=== PATIENT | female | born 1960 | race Caucasian/White ===

== ENCOUNTER 2017-06-16 14:13 | Emergency (ER) | payer OTHER ==
[~2017-06-16] VITALS: Ht 180.3 cm; Wt 59.4 kg
[2017-06-16 14:24] VITALS: TEMP 37; Ht 180.3 cm; Wt 59.4 kg
--- NOTE | 2017-06-16 15:13 | DIAGNOSTIC IMAGING REPORT ---
LEFT ANKLE 3 VIEWS HISTORY: Left ankle pain. COMPARISON: None. FINDINGS: Displaced fractures involving the medial and lateral malleolus with lateral subluxation of the talus in relation to the tibia. This demonstrates up to 8 mm of lateral displacement. Diffuse soft tissue swelling. No radiopaque foreign bodies. IMPRESSION: Displaced bimalleolar left ankle fracture as described above. Electronically signed by: Walter Duval M.D. 06/16/2017 3:11 PM Dictated Date/Time: 06/16/2017 3:10 PM
[2017-06-16] MEDS ORDERED: CHOL1TAB42 PO (15:20)
[2017-06-16] MEDS ORDERED: CIME-56 PO (15:20)
[2017-06-16] MEDS ORDERED: MILK140C PO (15:20)
[2017-06-16] MEDS ORDERED: OMEG1CAP71 PO (15:20)
[2017-06-16] MEDS ORDERED: COEN100C11 PO (15:20)
[2017-06-16] MEDS ORDERED: MELA1TAB22 PO (15:20)
[2017-06-16] MEDS ORDERED: MULT-513 PO (15:20)
[2017-06-16] MEDS ORDERED: PANC6000 PO (15:20)
[2017-06-16] MEDS ORDERED: TURM1CAP2 PO (15:20)
[2017-06-16] MEDS ORDERED: OXYCODONE/ACETAMINOPHEN 5-325 TAB PO STA (15:26)
[2017-06-16 15:35] VITALS: BP 129/77; PULSE 64; O2SAT 97
--- NOTE | 2017-06-16 15:47 | EMERGENCY ROOM VISIT NOTE ---
History First contact with patient: 14:36 Chief Complaint: ANKLE PAIN Stated Complaint: LT ANKLE PAIN FRACTURE History of Present Illness The patient is a 57 year old female who presents to the Emergency Room via private vehicle with complaints of "left ankle pain, fracture". The patient states that last evening she slipped and fell on the [place] around midnight, and injured her left ankle. She was seen at [facility], and was placed in a posterior splint and was recommended to come here for further evaluation. She notes pain and left ankle that she rates as a 3/10. There is no numbness or tingling. She denies other injury. Review of Systems A complete 6-point Review of Systems was discussed with the patient, with pertinent positives and negatives listed in the History of Present Illness. All remaining Review of Systems questions can be considered negative unless otherwise specified. Past Medical/Surgical History No pertinent Family History No pertinent. Social History Smoking Status: Former Smoker Pt. lives in [place] Current/Historical Medications Scheduled Cholecalciferol (Vitamin D), 5,000 UNITS PO DAILY Cimetidine (Tagamet), 400 MG PO BID Coenzyme Q10 (Ubidecarenone) (Coq-10), 100 MG PO DAILY Melatonin-Pyridoxine (Melatonin), 20 MG PO HS Milk Thistle (Silybum Marianum (Milk Thistle), 1 TAB PO DAILY Multivitamins/Minerals (Mvi With Minerals), 1 TAB PO DAILY Deane 3 Fatty Acids-Deane 6 Fa (Deane 3-6-9 Complex), 1 CAP PO DAILY Pancrelipase (Lipase-Protease- (Creon), 1-2 CAP PO TIDM Turmeric (Curcuma Longa) (Turmeric), 1 TAB PO DAILY Scheduled PRN Oxycodone/Acetaminophen 5MG/325MG (Percocet 5MG/325MG), 1 TAB PO Q4H PRN for Pain Physical Exam Vital Signs Date Time Temp Pulse Resp B/P (MAP) Pulse Ox O2 Delivery O2 Flow Rate FiO2 06/16/17 15:35 64 16 129/77 97 Room Air 06/16/17 14:24 37.0 77 16 129/75 97 Room Air Physical Exam VITAL SIGNS - Vital signs and nursing notes were reviewed. Stable. GENERAL - 57-year-old female appearing her stated age who is in no acute distress. Communicates well with provider and answers questions appropriately. SKIN - L ankle edema. HEAD - NC/AT. EXTREMITIES - No clubbing or peripheral cyanosis. No pretibial edema present. L ankle tenderness diffusely about the left ankle joint. +5/5 strength noted in UE /LE bilaterally. She is neurovascularly intact in the left ankle region. Medical Decision & Procedures ER Provider Diagnostic Interpretation: LEFT ANKLE 3 VIEWS HISTORY: Left ankle pain. COMPARISON: None. FINDINGS: Displaced fractures involving the medial and lateral malleolus with lateral subluxation of the talus in relation to the tibia. This demonstrates up to 8 mm of lateral displacement. Diffuse soft tissue swelling. No radiopaque foreign bodies. IMPRESSION: Displaced bimalleolar left ankle fracture as described above. Electronically signed by: Walter Duval M.D. 06/16/2017 3:11 PM Dictated Date/Time: 06/16/2017 3:10 PM Medications Administered Medications (Trade) Dose Ordered Sig/Louie Route Start Time Stop Time Status Last Admin Dose Admin Oxycodone/ Acetaminophen (Percocet 5-325mg Tab) 1 tab NOW STAT PO 06/16/17 15:26 06/16/17 15:27 DC 06/16/17 15:34 1 TAB Medical Decision Patient was seen and evaluated as above. She presents to us today status post recommendation by [facility] following a left ankle fracture. I did review her x-rays, and will recommend repeat to ensure that alignment has not changed. Results as above. Case was discussed with the attending physician decision was made to place the patient in a 3 sided splint to provide both posterior as well as lateral and medial support. Patient was given Percocet prior to splinting. Care was taken to make sure that alignment was anatomic and appropriate. She was neurovascularly intact. She will be given Percocet via prescription for her pain. She was given crutches. She is to follow-up with the orthopedic surgeon back home she indicated. She is to call them first thing tomorrow. She was educated upon management, educated upon worrisome symptoms in which to return, had questions answered prior to discharge, and was discharged home in good condition. There are no red flags identified and the [employer] innovate | mentor | invest drug monitoring system. In the evaluation and treatment of this patient, the following differential diagnoses were considered: Ankle Fracture, Ankle Sprain, Distal Fibula Fracture , Distal Tibia Fracture, Foot Fracture, Maisonneuve Fracture. Impression Primary Impression: Bimalleolar ankle fracture Departure Information Dispostion Home / Self-Care Condition GOOD Prescriptions Oxycodone/Acetaminophen 5MG/325MG (PERCOCET 5MG/325MG) Tab 1 TAB PO Q4H Y for Pain, #18 TAB For Initial Treatment Prov: Rodrigo Patel PA-C 06/16/17 Referrals No Doctor, Assigned (PCP) Patient Instructions My [facility] Additional Instructions You have been treated in the Emergency Department for a L Ankle fracture. You have received pain medicine in the emergency department which impairs your ability to operate a vehicle. It is illegal for you to drive after receiving these medicines. You have been prescribed Percocet to be used for pain control. This is a narcotic medication. You cannot drive or consume alcohol while on this medicine. This medicine should only be used for pain that cannot be controlled with adtn-mfn-nzizwnk pain medicines. For pain control, you can use the following pryr-wua-frhaxnv medicines (if >12 yo): - Regular strength (325mg/tab) Tylenol (acetaminophen) 2 tabs every 4-6 hours as needed. Do not exceed 12 tablets in a 24 hour period. Avoid taking more than 3 grams (3000 mg) of Tylenol per day. This includes any other sources of acetaminophen you may take on a regular basis. No tylenol with the percocet! - Regular strength (200 mg/tab) Advil (ibuprofen) 1-2 tabs every 4-6 hours as needed. Do not exceed a dose of 3200 mg per day. If this is a recent injury (<24 hrs), ice can be applied to the area of pain for the first 3 days to help decrease pain and inflammation. Please contact orthopedics first thing tomorrow morning. Keep the ankle brace/splint in place until cleared by Orthopedics. Use the crutches you have been provided to keep ALL weight off of the ankle until weight bearing is tolerable. Return to the Emergency Department if your current symptoms worsen despite treatment course outlined above, or if you develop any of the following symptoms : intractable pain despite aforementioned treatment course or new onset of numbness or tingling of the foot. LEFT ANKLE 3 VIEWS HISTORY: Left ankle pain. COMPARISON: None. FINDINGS: Displaced fractures involving the medial and lateral malleolus with lateral subluxation of the talus in relation to the tibia. This demonstrates up to 8 mm of lateral displacement. Diffuse soft tissue swelling. No radiopaque foreign bodies.
[2017-06-16] MEDS ORDERED: OXYC-57 PO (16:06)
== END 2017-06-16 16:29 | disposition home or self-care (01) ==
LOC: C.EDB 14:15 → C.EDD 16:29
DX: S82.842A Displaced bimalleolar fracture of left lower leg, initial encounter for closed fracture (principal); W00.0XXA Fall on same level due to ice and snow, initial encounter; Z87.891 Personal history of nicotine dependence